=== PATIENT | female | born 1995 | race Caucasian/White ===

== ENCOUNTER 2022-09-08 07:58 | Emergency (ER) | payer SELFPAY ==
[~2022-09-08] VITALS: Ht 167.6 cm; Wt 89.0 kg
[2022-09-08 08:01] VITALS: BP 146/86
[2022-09-08] MEDS ORDERED: ACETAMINOPHEN 325MG TABLET PO ONE (08:15)
[2022-09-08] MEDS ORDERED: GUAIFENESIN 600MG ER TABLET PO ONE (08:15)
[2022-09-08] MEDS ORDERED: GUAI600T26 MT (08:19)
[2022-09-08] MEDS ORDERED: ALBU6.7H15 INH (08:19)
== END 2022-09-08 08:36 | disposition home or self-care (01) ==
LOC: ER 07:58
DX: B34.9 Viral infection, unspecified (principal); Z20.822 Contact with and (suspected) exposure to COVID-19
CPT/HCPCS: 81025; 87426; 99283; C9803